=== PATIENT | male | born 1945 | race Caucasian/White ===

== ENCOUNTER 2020-10-01 18:44 | Emergency (ER) | payer MEDICARE, SELFPAY ==
[2020-10-01] VITALS (17 sets, daily range): BP systolic 137–164; BP diastolic 63–83; PULSE 82–88; RESP 17; TEMP 38.6; O2SAT 93–97
--- NOTE | 2020-10-01 18:51 | DI.RAD.S_ITS ---
PROCEDURE: XR CHEST 1V INDICATIONS: suspected sepsis TECHNIQUE: One view of the chest was acquired. COMPARISON: None. FINDINGS: Surgical changes and devices: Partially visualized right shoulder arthroplasty. Lungs and pleura: Lungs are clear. No pleural effusions or pneumothorax. Mediastinum: Mediastinal contours appear normal. Heart size is mildly prominent. Bones and chest wall: No suspicious bony lesions. Overlying soft tissues appear unremarkable. IMPRESSION: No acute pulmonary process. Dictated by: Lexie Choe M.D. on 10/01/2020 at 20:50 Approved by: Lexie Choe M.D. on 10/01/2020 at 20:52
--- NOTE | 2020-10-01 18:52 | DI.RAD.S_ITS ---
PROCEDURE: XR HIP W PEL IF DONE RT 2V INDICATIONS: pain sp fall TECHNIQUE: AP pelvis with lateral view(s) of the right hip(s). COMPARISON: [facility], CT, CT LUMBAR SPINE W CON, 10/01/2020, 19:59. FINDINGS: Bones: No fractures or dislocations. Pelvic ring appears intact. No suspicious bony lesions. Lower lumbar fixation hardware as well as partially visualized presumed spinal stimulator is noted. Soft tissues: The visualized bowel gas pattern is normal. No suspicious soft tissue calcifications. IMPRESSION: No visualized acute fracture or dislocation. However, if clinical concern and/or pain persist, short interval imaging followup in 7-10 days is recommended, as occult injury cannot be definitively excluded. Dictated by: Lexie Choe M.D. on 10/01/2020 at 20:49 Approved by: Lexie Choe M.D. on 10/01/2020 at 20:50
[2020-10-01 19:19] LABS: Add Manual Diff / Slide Review NO; Basophils Absolute Auto 100 /uL (0-100); Eosinophils Absolute Auto 1100 /uL (0-450); Eosinophils Percent Auto 15.8 % (2-4); Hematocrit 31.8 % (41-53); Hemoglobin 10.9 g/dL (13.5-17.5); Lymphocytes Absolute Auto 1100 /uL (1100-4500); Lymphocytes Percent Auto 16.8 % (25-40); Mean Corpuscular HGB Conc 34.4 % (30-36); Mean Corpuscular Hemoglobin 31.3 PG (26-34); Monocytes Absolute Auto 800 /uL (0-900); Monocytes Percent Auto 12.5 % (3-14); Neutrophils Absolute Auto 3600 /uL (1500-7000); Neutrophils Percent Auto 53.9 % (50-75); Platelet Count 224 X10^3/uL (150-400); Red Cell Distribution Width 13.3 % (11.6-14.8); White Blood Cell Count 6.8 X10^3/uL (4.5-11.0)
--- NOTE | 2020-10-01 19:26 | ED_ITS ---
HPI - Fever General Chief Complaint: Fever Stated Complaint: FALL RIGHT PAIN Time Seen by Provider: 10/01/20 19:15 Source: patient Mode of arrival: Ambulatory History of Present Illness HPI Narrative: Patient postop day 5 status post lumbar fusion at [facility] last . Patient states 4 days due to continued drainage from his wounds. They discontinued the drainage tubing on Wednesday and sent home. No current antibiotics. Today felt very weak and fatigued with fever. Had near syncope fall this morning at 10:00 a.m.. Complains of right pelvis pain after his fall. Patient did not lose consciousness. Fell to the ground. Was with family during the fall and was partially assisted when he fell. Denies any head or neck injury. Denies any back injury from this fall. Fever noted. Denies any COVID exposure. No cough cold congestion nausea vomiting or diarrhea or urinary complaints. No urinary complaints MD complaint: fever and malaise Related Data Home Medications Medication Instructions Recorded Confirmed multivitamin [Multiple Vitamins] 1 tab PO QDAY #0 07/01/17 10/01/20 atorvastatin 10 mg PO DAILY 10/01/20 10/01/20 baclofen 10 mg PO DAILY PRN 10/01/20 10/01/20 doxepin 10 mg PO BID 10/01/20 10/01/20 ondansetron HCl 4 mg PO BID PRN 10/01/20 10/01/20 oxycodone 10 mg PO Q6-8H PRN 10/01/20 10/01/20 Previous Rx's Medication Instructions Recorded aspirin 81 mg PO BID #60 tab 07/20/17 Allergies Allergy/AdvReac Type Severity Reaction Status Date / Time Penicillins [PENICILLINS] Allergy Severe ALL OVER Verified 10/01/20 19:39 BODY/FACE EDEMA Sulfa (Sulfonamide Allergy Mild ITCHING Verified 10/01/20 19:39 Antibiotics) [SULFA (SULFONAMIDE ANTIBIOTICS)] Review of Systems Review of Systems Narrative: GENERAL: Complains of weakness, chills, fatigue, malaise, fever, sweats. HEENT: Denies sinus pain, ear pain, sore throat, difficulty swallowing RESPIRATORY: Denies dyspnea, cough CARDIOVASCULAR: Denies chest pain, palpitations, edema, GASTROINTESTINAL: Denies nausea, vomiting, abdominal pain, diarrhea, constipation, melena. : Denies dysuria, frequency, hematuria MUSCULOSKELETAL: denies muscle or bony pain SKIN: Denies rash, skin lesions NEUROLOGIC: Denies weakness, headache, numbness, change in speech, confusion ROS Unobtainable: All systems reviewed & are unremarkable except as noted in HPI and below Exam Narrative Exam Narrative: GENERAL: patient appears stated age. Well-nourished, well- developed patient, in no distress, not toxic not dyspneic HEAD: Normocephalic. EYES: Pupils equal round and reactive. No scleral icterus. No injection no discharge ENT: Mucous membranes moist. NECK: Trachea midline. Non tender CARDIOVASCULAR: Regular rate and rhythm without murmurs, gallops, or rubs. RESPIRATORY: Clear to auscultation. Breath sounds equal bilaterally. No wheezes, rales, or rhonchi. GASTROINTESTINAL: Abdomen soft, non-tender, nondistended. EXTREMITIES: No gross deformities. Examination right pelvis and hip. Nontender right hip. No bruise. No abrasions to the right anterior superior iliac spine. Mild tenderness to this area. No bruising. BACK: No crepitance. No flank tenderness. Dressing removed. Sutures clean dry intact. Incision clean dry intact. No discharge no erythema. NEURO: AOx4. Patient able to flex and extend at the hips knees and ankles bilaterally without difficulty. Light touch intact to foot and toes. SKIN: Warm and dry PSYCH: Not anxious, is cooperative Initial Vital Signs Initial Vital Signs: Vital Signs Temperature 101.5 F H 10/01/20 18:51 Course Course Course Narrative: No new issues during course of stay. Pain controlled. Fever controlled. Orders Ordered: ED Orders 10/01/20 18:51 XR chest 1V Stat EKG-12 Lead Stat RT Consult Eval and Treat Now 10/01/20 18:52 XR hip w pel if done RT 2V Stat 10/01/20 19:00 Blood Culture Stat 10/01/20 19:10 COVID19 Stat Complete Blood Count AUTO DIFF Stat Comprehensive Metabolic Panel Stat Lactate (Lactic Acid) Stat Lipase Stat Partial Thromboplastin Time Stat Procalcitonin Stat Prothrombin Time INR Stat Troponin & CK Cardiac Panel Stat 10/01/20 19:24 CT lumbar spine w con Stat CT thoracic spine w con Stat CT thoracic spine wo con Stat Discontinued Medications Sodium Chloride (Normal Saline 0.9%) 1,000 mls @ 1,000 mls/hr IV BOLUS ONE Stop: 10/01/20 19:50 Last Admin: 10/01/20 18:53 Dose: Not Given Documented by: JOSE Sodium Chloride (Normal Saline 0.9%) 1,000 mls @ 1,000 mls/hr IV BOLUS ONE Stop: 10/01/20 20:23 Last Infusion: 10/01/20 21:10 Dose: 0 mls/hr Documented by: Admin: 10/01/20 19:39 Dose: 1,000 mls/hr Documented by: JOSE Vancomycin HCl (Vancomycin) 1,000 mg in 200 mls @ 200 mls/hr IV NOW ONE Stop: 10/01/20 20:24 Last Infusion: 10/01/20 21:10 Dose: 0 mls/hr Documented by: Admin: 10/01/20 19:39 Dose: 200 mls/hr Documented by: JOSE Morphine Sulfate (Morphine 4 Mg/Ml Inj) 4 mg IV NOW ONE Stop: 10/01/20 19:41 Last Admin: 10/01/20 19:45 Dose: 4 mg Documented by: JOSE Morphine Sulfate (Morphine 4 Mg/Ml Inj) 4 mg IV NOW ONE Stop: 10/01/20 22:54 Last Admin: 10/01/20 22:59 Dose: 4 mg Documented by: CHRISTOPHER Oxycodone/Acetaminophen (Oxycodone/Acetaminophen 5/325 Tablet) 1 tab PO NOW ONE Stop: 10/01/20 23:13 Last Admin: 10/01/20 23:15 Dose: 1 tab Documented by: CHRISTOPHER Reevaluation(s) Reevaluation #1: Reviewed with patient results and understands needs observation transfer for continuity of care and abundance of caution with fever and recent surgery Time: 21:57 Reevaluation #2: Updated family at bedside with results and they agree with ashly ritter for continued care. X-ray of right hip and pelvis no acute process but however underlying occult fracture/hairline fracture may be present however nerve stimulator overlying this region may interfere with CT scan imaging and MRI. Patient will be seen by emergency department at [facility] for recheck Time: 22:35 Consultations Consultation #1: Spoke with the [facility] transfer center and patient to be transferred ER to ER. Neurosurgeon Dr. sigala will see pt when txr. Time: 21:58 Consultation #2: Spoke with emergency department [facility] Emergency Department Dr. Rogelio macias, will accept pt Time: 22:02 Vital Signs Vital signs: Vital Signs - 8 hr 10/01/20 18:51 10/01/20 19:24 10/01/20 19:30 Temperature 101.5 F H Pulse Rate 85 85 Respiratory Rate Blood Pressure 137/69 Pulse Oximetry 94 95 10/01/20 19:44 10/01/20 19:45 10/01/20 20:00 Temperature Pulse Rate 84 88 88 Respiratory Rate Blood Pressure 147/70 H 151/74 H Pulse Oximetry 96 95 96 10/01/20 20:25 10/01/20 20:28 10/01/20 20:30 Temperature Pulse Rate 87 87 88 Respiratory Rate Blood Pressure 151/72 H 148/77 H Pulse Oximetry 93 97 97 10/01/20 20:45 10/01/20 21:00 10/01/20 21:15 Temperature Pulse Rate 85 82 82 Respiratory Rate 17 Blood Pressure 150/73 H 139/65 143/68 H Pulse Oximetry 96 96 94 10/01/20 21:30 10/01/20 21:45 10/01/20 22:00 Temperature Pulse Rate 84 84 85 Respiratory Rate Blood Pressure 138/63 143/67 H 144/69 H Pulse Oximetry 93 97 97 10/01/20 22:15 10/01/20 22:30 Temperature Pulse Rate 86 88 Respiratory Rate Blood Pressure 145/70 H 164/83 H Pulse Oximetry 96 96 MDM - Fever Differential Diagnosis Differential diagnosis: Likely fever of unknown origin, viral infection and other (Postop wound infection) Medical Records Attestation: I reviewed the patient's medical records. Medical records narrative: Medical records faxed from [facility] Lab Data Attestation: I reviewed the patient's lab results. Result diagrams: 10/01/20 19:10 10/01/20 19:10 Labs: Lab Results 10/01/20 10/01/20 10/01/20 Range/Units 19:10 19:10 19:10 WBC 6.8 (4.5-11.0) X10^3/uL RBC 3.50 L (4.5-5.9) X10^6/uL Hgb 10.9 L (13.5-17.5) g/dL Hct 31.8 L (41-53) % MCV 91.0 (80-100) fL MCH 31.3 (26-34) PG MCHC 34.4 (30-36) % RDW 13.3 (11.6-14.8) % Plt Count 224 (150-400) X10^3/uL Neut % (Auto) 53.9 (50-75) % Lymph % (Auto) 16.8 L (25-40) % Kidder % (Auto) 12.5 (3-14) % Eos % (Auto) 15.8 H (2-4) % Baso % (Auto) 1.0 (0-2) % Neut # (Auto) 3600 (2718-9429) /uL Lymph # (Auto) 1100 (3001-7120) /uL Kidder # (Auto) 800 (0-900) /uL Eos # (Auto) 1100 H (0-450) /uL Baso # (Auto) 100 (0-100) /uL PT 12.0 (10.1-12.7) SECONDS INR 1.0 (0.9-1.3) APTT 26 L (26.4-36.2) SECONDS Sodium (137-145) mmol/L Potassium (3.4-5.1) mmol/L Chloride (98-107) mmol/L Carbon Dioxide (22-32) mmol/L BUN (9-20) mg/dL Creatinine (0.66-1.25) mg/dL Estimated GFR (>60) mL/min BUN/Creatinine Ratio (6-22) Glucose (80-110) mg/dL Lactate (0.7-2.1) mmol/L Calcium (8.4-10.2) mg/dL Total Bilirubin (0.2-1.3) mg/dL AST (17-59) IU/L ALT (<50) IU/L Alkaline Phosphatase (38-126) U/L Total Creatine Kinase (55-170) U/L CK-MB (CK-2) CK-MB (CK-2) Rel Index Troponin I (0.01-0.034) ng/mL Total Protein (6.3-8.2) g/dL Albumin (3.5-5.0) g/dL Globulin (1.7-4.1) g/dL Albumin/Globulin Ratio (1.0-2.8) Lipase (23-300) U/L Procalcitonin 0.09 (<0.5) ng/mL SARS-CoV-2 (PCR) (Negative) 10/01/20 10/01/20 10/01/20 Range/Units 19:10 19:10 19:10 WBC (4.5-11.0) X10^3/uL RBC (4.5-5.9) X10^6/uL Hgb (13.5-17.5) g/dL Hct (41-53) % MCV (80-100) fL MCH (26-34) PG MCHC (30-36) % RDW (11.6-14.8) % Plt Count (150-400) X10^3/uL Neut % (Auto) (50-75) % Lymph % (Auto) (25-40) % Kidder % (Auto) (3-14) % Eos % (Auto) (2-4) % Baso % (Auto) (0-2) % Neut # (Auto) (3616-2469) /uL Lymph # (Auto) (9926-4465) /uL Kidder # (Auto) (0-900) /uL Eos # (Auto) (0-450) /uL Baso # (Auto) (0-100) /uL PT (10.1-12.7) SECONDS INR (0.9-1.3) APTT (26.4-36.2) SECONDS Sodium 132 L (137-145) mmol/L Potassium 4.3 (3.4-5.1) mmol/L Chloride 98 (98-107) mmol/L Carbon Dioxide 36 H (22-32) mmol/L BUN 20 (9-20) mg/dL Creatinine 1.12 (0.66-1.25) mg/dL Estimated GFR > 60.0 (>60) mL/min BUN/Creatinine Ratio 17.9 (6-22) Glucose 107 (80-110) mg/dL Lactate 1.0 (0.7-2.1) mmol/L Calcium 8.3 L (8.4-10.2) mg/dL Total Bilirubin 0.9 (0.2-1.3) mg/dL AST 190 H (17-59) IU/L ALT 150 H (<50) IU/L Alkaline Phosphatase 269 H (38-126) U/L Total Creatine Kinase (55-170) U/L CK-MB (CK-2) CK-MB (CK-2) Rel Index Troponin I (0.01-0.034) ng/mL Total Protein 5.9 L (6.3-8.2) g/dL Albumin 3.2 L (3.5-5.0) g/dL Globulin 2.7 (1.7-4.1) g/dL Albumin/Globulin Ratio 1.2 (1.0-2.8) Lipase 122 (23-300) U/L Procalcitonin (<0.5) ng/mL SARS-CoV-2 (PCR) Negative (Negative) 10/01/20 Range/Units 19:10 WBC (4.5-11.0) X10^3/uL RBC (4.5-5.9) X10^6/uL Hgb (13.5-17.5) g/dL Hct (41-53) % MCV (80-100) fL MCH (26-34) PG MCHC (30-36) % RDW (11.6-14.8) % Plt Count (150-400) X10^3/uL Neut % (Auto) (50-75) % Lymph % (Auto) (25-40) % Kidder % (Auto) (3-14) % Eos % (Auto) (2-4) % Baso % (Auto) (0-2) % Neut # (Auto) (7669-4127) /uL Lymph # (Auto) (0663-4791) /uL Kidder # (Auto) (0-900) /uL Eos # (Auto) (0-450) /uL Baso # (Auto) (0-100) /uL PT (10.1-12.7) SECONDS INR (0.9-1.3) APTT (26.4-36.2) SECONDS Sodium (137-145) mmol/L Potassium (3.4-5.1) mmol/L Chloride (98-107) mmol/L Carbon Dioxide (22-32) mmol/L BUN (9-20) mg/dL Creatinine (0.66-1.25) mg/dL Estimated GFR (>60) mL/min BUN/Creatinine Ratio (6-22) Glucose (80-110) mg/dL Lactate (0.7-2.1) mmol/L Calcium (8.4-10.2) mg/dL Total Bilirubin (0.2-1.3) mg/dL AST (17-59) IU/L ALT (<50) IU/L Alkaline Phosphatase (38-126) U/L Total Creatine Kinase 56 (55-170) U/L CK-MB (CK-2) TNP CK-MB (CK-2) Rel Index TNP Troponin I < 0.012 (0.01-0.034) ng/mL Total Protein (6.3-8.2) g/dL Albumin (3.5-5.0) g/dL Globulin (1.7-4.1) g/dL Albumin/Globulin Ratio (1.0-2.8) Lipase (23-300) U/L Procalcitonin (<0.5) ng/mL SARS-CoV-2 (PCR) (Negative) Urine Dip Bedside Urine Glucose Negative Bedside Urine Bilirubin - Negative Bedside Urine Ketone - Negative Urine Specific [place] 1.015 Bedside Urine Occult Blood - Negative Bedside Urine pH 6.0 Bedside Urine Protein - Negative Bedside Urine Urobilinogen +/- 1mg Bedside Urine Nitrite - Negative Bedside Urine Leukocytes - Negative Esterase Imaging Data Chest x-ray: Radiologist's Impression: [address] [id number] ReportSigned Patient: Kevon Beltran BMR#: [id number]: 1945cct:[id number]/Sex: 75 / MDate of Service: 10/01/20Loc: EDAccession Number: [id number] Procedure: XR chest 1V Ordering Provider: Sung Fields MD PROCEDURE: XR CHEST 1V INDICATIONS: suspected sepsis TECHNIQUE: One view of the chest was acquired. COMPARISON: None. FINDINGS: Surgical changes and devices: Partially visualized right shoulder arthroplasty. Lungs and pleura: Lungs are clear. No pleural effusions or pneumothorax. Mediastinum: Mediastinal contours appear normal. Heart size is mildly prominent. Bones and chest wall: No suspicious bony lesions. Overlying soft tissues appear unremarkable. IMPRESSION: No acute pulmonary process. Dictated by: Lexie Choe M.D. on 10/01/2020 at 20:50 Approved by: Lexie Choe M.D. on 10/01/2020 at 20:52 X-ray hip: Radiologist's Impression: [address] [id number] ReportSigned Patient: Kevon Beltran BMR#: [id number]: 1945cct:[id number]/Sex: 75 / MDate of Service: 10/01/20Loc: EDAccession Number: [id number] Procedure: XR hip w pel if done RT 2V Ordering Provider: Sung Fields MD PROCEDURE: XR HIP W PEL IF DONE RT 2V INDICATIONS: pain sp fall TECHNIQUE: AP pelvis with lateral view(s) of the right hip(s). COMPARISON: [facility], CT, CT LUMBAR SPINE W CON, 10/01/2020, 19:59. FINDINGS: Bones: No fractures or dislocations. Pelvic ring appears intact. No suspicious bony lesions. Lower lumbar fixation hardware as well as partially visualized presumed spinal stimulator is noted. Soft tissues: The visualized bowel gas pattern is normal. No suspicious soft tissue calcifications. IMPRESSION: No visualized acute fracture or dislocation. However, if clinical concern and/or pain persist, short interval imaging followup in 7-10 days is recommended, as occult injury cannot be definitively excluded. Dictated by: Lexie Choe M.D. on 10/01/2020 at 20:49 Approved by: Lexie Choe M.D. on 10/01/2020 at 20:50 CT scan lumbar spine: Radiologist's Impression: [address] [id number] Scan ReportSigned Patient: Kevon Beltran BMR#: [id number]: 6Acct:[id number]/Sex: 75 / MDate of Service: 10/01/20Loc: EDAccession Number: [id number] Procedure: CT lumbar spine w con Ordering Provider: Sung Fields MD PROCEDURE: CT LUMBAR SPINE W CON INDICATIONS: Fever/postop lumbar surgery TECHNIQUE: After the administration of intravenous Isovue contrast, 3 mm thick sections acquired through the levels of interest. Sagittal and coronal reformats were then constructed. For radiation dose reduction, the following was used: automated exposure control. COMPARISON: [facility], MR, MR LUMBAR SPINE WITHOUT CONTRAST, 05/10, 12:31. [facility], CT, CT THORACIC SPINE WO CON, 10/01/2020, 19:59. [facility], CT, CT THORACIC SPINE W CON, 10/01/2020, 19:59. FINDINGS: Image quality: Excellent. Bones: Posterior fusion is present from L2 through L5 with prosthetic spacers at L2-3, L3-4 and L4-5. Hardware is intact without evidence of fracture or periprosthetic loosening. There is significant artifact obscuring evaluation of the canal from L2 through L5. There is a prominent focus of air identified to the right of the spinal canal at the levels of L2-3 L3-4 and bilateral at L4-5. There may be surr ounding fluid however, significant metallic artifact obscures evaluation. Soft tissues: There is a focus of low attenuation presumably fluid within the posterior paraspinous tissues posterior to the spinous process from T12-L2 measuring approximately 18 mm AP x 26 mm transverse. There is no enhancement. Small focus of left paramidline subcutaneous air is noted along the superior aspect. There is edema of the posterior paraspinous musculature from L3-L4. IMPRESSION: 1. Extensive postsurgical changes as above. 2. Small focus of fluid posterior to the spinous process at T12 through L2 suggestive of small seroma, hematoma or potentially phlegmon. Overall appearance on current imaging is not consistent with abscess. 3. Edema of the posterior paraspinous musculature is present at L3-4 without focus of enhancement to suggest abscess. 4. Multiple foci of air adjacent to the spinal canal as described above presumably postsurgical. Surrounding fluid and subsequent canal compression is not able to be evaluated secondary to artifact. MRI with without contrast is recommended for further evaluation, as CT is significantly limited. Dictated by: Lexie Choe M.D. on 10/01/2020 at 21:31 Approved by: Lexie Choe M.D. on 10/01/2020 at 21:39 CT scan thoracic spine without contrast: Radiologist's Impression: [address] [id number] Scan ReportSigned Patient: Kevon Beltran BMR#: [id number]: 1945cct:[id number]/Sex: 75 / MDate of Service: 10/01/20Loc: EDAccession Number: [id number] Procedure: CT thoracic spine wo con Ordering Provider: Sung Fields MD PROCEDURE: CT THORACIC SPINE WO CON INDICATIONS: Fevers/postop lumbar surgery TECHNIQUE: Noncontrast 3 mm thick sections acquired through the region of interest in the thoracic spine. Sagittal and coronal reformats were then constructed. For radiation dose reduction, the following was used: automated exposure control. COMPARISON: [facility], CT, CT LUMBAR SPINE W CON, 10/01/2020, 19:59. [facility], MR, MR LUMBAR SPINE WITHOUT CONTRAST, 05/10/2020, 12:31. [facility], CR, XR LUMBAR SPINE WITH FLEXION EXTENSION 5 VIEWS, 05/10/2020, 11:00. FINDINGS: Image quality: Excellent. Bones: There is normal overall bony alignment. T11 compression deformity is unchanged. No suspicious sclerotic or lytic bony lesions. Central spinal canal is of normal overall caliber. Spinal cord stimulators noted with wires extending to the level of T7. Multilevel degenerative disc space narrowing is present throughout the thoracic spine. Anterior bridging osteophytes are noted at T6-7 T11-12. Soft tissues: There is a small focus of subcutaneous fluid immediately posterior to the spinous process T12 through L2 measuring 18 mm AP x 26 mm transverse. It is overall nonenhancing. Punctate area of air is noted within the subcutaneous at the superior aspect of this region in the left paracentral location. Heart is enlarged. Visualized posteromedial lungs appear clear. IMPRESSION: 1. Spinal cord stimulator as above. 2. Unchanged compression deformity at T11. 3. Small focus of fluid from T12 through L2 as above. This could represent a small focus of postoperative seroma. Overall appearance is not suggestive of abscess at time of exam.. Dictated by: Lexie Choe M.D. on 10/01/2020 at 20:52 Approved by: Lexie Choe M.D. on 10/01/2020 at 21:01 CT scan thoracic spine with contrast: Radiologist's Impression: [address] [id number] Scan ReportSigned Patient: Kevon Beltran BMR#: [id number]: 1945cct:[id number]/Sex: 75 / MDate of Service: 10/01/20Loc: EDAccession Number: [id number] Procedure: CT thoracic spine w con Ordering Provider: Sung Fields MD PROCEDURE: CT THORACIC SPINE W CON INDICATIONS: Fever/postop lumbar surgery TECHNIQUE: After the administration of intravenous Isovue contrast, 3 mm thick sections acquired through the levels of interest. Sagittal and coronal reformats were then constructed. For radiation dose reduction, the following was used: automated exposure control. COMPARISON: [facility], CT, CT THORACIC SPINE WO CON, 10/01/2020, 19:59. [facility], CT, CT LUMBAR SPINE W CON, 10/01/2020, 19:59. FINDINGS: Image quality: Excellent. Bones: Multilevel degenerative changes are present including bridging anterior osteophytes at T6-7 and T11-12. Spinal cord stimulator is noted at T7. Multilevel degenerative changes are present. Unchanged compression deformities noted at T11. Soft tissues: There is a small punctate area of air is noted within the subcutaneous fat along the superior left paracentral region of the fluid. Small focus of fluid posterior to the spinous process at T12 through L2 without rim enhancement. Liver is enlarged. Heart is enlarged. IMPRESSION: Focus of nonenhancing low attenuation presumably fluid posterior to the spinous process as above. This could represent a small area of seroma, hematoma or potentially phlegmon. Dictated by: Lexie Choe M.D. on 10/01/2020 at 21:02 Approved by: Lexie Choe M.D. on 10/01/2020 at 21:05 ECG Data Attestation: I personally reviewed and interpreted this ECG as follows: Interpretation: Normal sinus rhythm rate [address] elevation or depression. EKG is normal sinus rhythm rate [ ] and free of any signs of ischemia or ectopy. No ST segmental elevation or depression. No T wave inversions MDM Narrative Medical decision making narrative: Appropriate for transfer for continuity of care to [place]/recent surgery with fever, abundant of caution for possible postop infection Discharge Plan Departure Patient Disposition: [facility] Clinical Impression: Fever of unknown origin, Near syncope Prescriptions: No Action multivitamin [Multiple Vitamins] 1 EACH tablet 1 tab PO QDAY Qty: 0 RF: 0 aspirin 81 MG tablet,delayed release (DR/EC) 81 mg PO BID Qty: 60 RF: 1 ondansetron HCl 4 mg tablet 4 mg PO BID PRN (Reason: nausea / vomiting) RF: 0 doxepin 10 mg capsule 10 mg PO BID RF: 0 baclofen 10 mg tablet 10 mg PO DAILY PRN (Reason: muscle spasms) RF: 0 oxycodone 10 mg tablet 10 mg PO Q6-8H PRN (Reason: Pain (Scale Score 4-6)) RF: 0 atorvastatin 10 mg Tablet 10 mg PO DAILY RF: 0
[2020-10-01 19:33] LABS: PTT Partial Thromboplastin Tim 26 SECONDS (26.4-36.2)
[2020-10-01 19:34] LABS: Alanine Aminotransferase 150 IU/L (<50); Albumin 3.2 g/dL (3.5-5.0); Albumin Globulin Ratio 1.2 (1.0-2.8); Alkaline Phosphatase 269 U/L (38-126); Aspartate Aminotransferase 190 IU/L (17-59); BUN Creatinine Ratio 17.9 (6-22); Bilirubin Total 0.9 mg/dL (0.2-1.3); Blood Urea Nitrogen 20 mg/dL (9-20); Calcium 8.3 mg/dL (8.4-10.2); Carbon Dioxide 36 mmol/L (22-32); Chloride 98 mmol/L (98-107); Estimated Glomerular Filt Rate > 60.0 mL/min (>60); Globulin 2.7 g/dL (1.7-4.1); Glucose 107 mg/dL (80-110); HEMOLYSIS < 15 (0-50); Lipase 122 U/L (23-300); Potassium 4.3 mmol/L (3.4-5.1); Sodium 132 mmol/L (137-145); Total Protein 5.9 g/dL (6.3-8.2)
[2020-10-01] MEDS: VANCOMYCIN 1,000 MG/200 ML PIGGYBACK 200 MG IV (19:39)
[2020-10-01] MEDS: SODIUM CHLORIDE 0.9% 1,000 ML 1000 ML IV (19:39)
[2020-10-01] MEDS: MORPHINE 4 MG/ML INJ IV ×2 (19:45→22:59)
[2020-10-01 19:48] LABS: Procalcitonin 0.09 ng/mL (<0.5)
[2020-10-01 19:58] LABS: COVID19 -Nasal RAPID Negative (Negative)
--- NOTE | 2020-10-01 19:59 | PC.NURSE ---
Pt unaware of any fever until her got to ED this evening.
[2020-10-01 20:06] LABS: Creatine Kinase 56 U/L (55-170)
[2020-10-01 20:19] LABS: Troponin I < 0.012 ng/mL (0.01-0.034)
[2020-10-01] MEDS: OXYCODONE/ACETAMINOPHEN 5/325 TABLET 1 TAB PO (23:15)
== END 2020-10-01 23:24 | disposition short-term general hospital (02) ==
PROVIDERS: Emergency Provider Emergency Medicine
DX: R50.9 Fever, unspecified (principal); R55 Syncope and collapse; R10.2 Pelvic and perineal pain; Z20.822 Contact with and (suspected) exposure to COVID-19; Z98.890 Other specified postprocedural states
CPT/HCPCS: 36415; 71045; 72128; 72129; 72132; 73502; 80053; 81003; 82550; 83605; 83690; 84145; 84484; 85025; 85610; 85730; 87040; 87635; 93005; 96365; 96366; 96375; 96376; 99285; C9803; J2270; Q9967